=== PATIENT | male | born 1995 | race Caucasian/White ===

== ENCOUNTER 2022-06-07 19:06 | Emergency (ER) | payer BC, SELFPAY ==
--- NOTE | ~2022-06-07 | XR_ITS ---
EXAMINATION: XR ankle LT min 3V DATE: 06/07/2022 19:18 INDICATION: Left ankle pain. TECHNIQUE: 4 views of left ankle were obtained. COMPARISON: None. FINDINGS: Bone alignment is normal. No fracture. Joint spaces are normal. There is an enthesophyte at plantar aspect of calcaneal tuberosity. There is ankle soft tissue swelling. IMPRESSION: 1. No fracture. Reviewed, dictated and finalized at location A. IMPRESSION: 1. No fracture.
--- NOTE | 2022-06-07 19:08 | ED.LOWEXIN ---
HPI - Extremity Injury (Lower) General Chief Complaint: Extremity Injury, Lower Stated Complaint: Lt Ankle Pain Time Seen by Provider: 06/07/22 19:23 Source: patient and RN notes reviewed Mode of arrival: ambulatory Limitations: no limitations History of Present Illness HPI Narrative: 26-year-old male presents to the [facility] with complaints of left ankle pain since 9 AM this morning. Patient states that he was at work and rolled his ankle he thinks. Patient states he worked all day, got home took his boots off and noticed the swelling and bruising to the lateral aspect. Tenderness to the ankle. Denies hitting head, no loss of consciousness. Sensation intact distal to injury along with capillary refill being under 2 seconds MD complaint: ankle injury (left) Related Data Home Medications Medication Instructions Recorded Confirmed No Home Medications 06/07/22 06/07/22 Allergies Allergy/AdvReac Type Severity Reaction Status Date / Time No Known Allergies Allergy Verified 06/07/22 19:24 Review of Systems Review of Systems: All systems reviewed & are unremarkable except as noted in HPI and below Constitutional: Constitutional: Reports no additional constitutional complaints, Denies chills and Denies fever(s) Eyes: Eyes: Reports no additional eye complaints ENT: Reports system reviewed and no additional complaints, except as documented Cardiovascular: Cardiovascular: Reports no additional cardiovascular complaints Respiratory: Respiratory: Reports no additional respiratory complaints Gastrointestinal: Gastrointestinal: Reports no additional gastrointestinal complaints Musculoskeletal: Musculoskeletal: Reports as per HPI, Reports arthralgias (Left ankle) and Reports joint swelling (Left ankle) Integumentary/Breasts: Skin/Breast: Reports system reviewed and no additional complaints, except as docu Neurologic: Reports system reviewed and no additional complaints, except as documented Psychiatric: Psychiatric: Reports no additional psychiatric complaints Allergic/Immunologic: Allergic/Immunologic: Reports no additional allergic/immunologic complaints [facility] Past Medical History Medical History (Updated 06/07/22 @ 19:59 by Ilene Beckman APRN) Patient denies medical problems Social History Social History (Updated 06/07/22 @ 19:32 by Ilene Becmkan APRN) Gender identity (if verbalized by the patient): Male Comments At the time of my signature, I reviewed and agree with the nursing past medical, surgical, social, and family history. There is no relevant family history pertinent to the patient complaint. Exam Const: General: healthy appearing, no acute distress and alert Nutritional Appearance: well nourished Orientation/consciousness: patient oriented x3 Limitations: no limitations HENMT: Head: normal to inspection Ears: external ears normal Eyes: General: appearance normal, both eyes and all related structures Pupils: Equal, round and reactive pupils present Neck: Neck: normal visual inspection, no lymphadenopathy and no meningeal signs Chest: Chest palpation & inspection: normal inspection of the chest Resp: Effort & Inspection: normal respiratory effort and no use of accessory muscles Auscultation: clear to auscultation bilaterally, no crackles, no rales, no rhonchi and no wheezes Cardio: Rate: regular rate Rhythm: regular rhythm Back/Spine/Pelvis: Cervical Spine: normal cervical lordosis Thoracic/Lumbar Spine: thoracic and lumbar spine normal to inspection Skin: General skin exam: normal color Rashes: no rashes Wounds: no wounds Neuro: General: patient oriented x3, moves all extremities, no meningeal signs and no focal motor deficits Cranial nerves: Yes Equal, round and reactive pupils present Speech: normal speech Gait exam (Neuro): Normal gait present Extrem: General: normal to inspection, full ROM and capillary refill normal Left lower extremity: full ROM, normal capillary
[2022-06-07 19:23] VITALS: BP 157/88; PULSE 90; RESP 18; TEMP 37.5; O2SAT 99
== END 2022-06-07 19:31 | disposition home or self-care (01) ==
PROVIDERS: Emergency Provider Nurse Practitioner; PCP Nurse Practitioner Family
DX: S93.402A Sprain of unspecified ligament of left ankle, initial encounter (principal); X58.XXXA Exposure to other specified factors, initial encounter; Z86.16 Personal history of COVID-19
CPT/HCPCS: 73610; 99213; G0463

== ENCOUNTER → 2022-09-08 10:47 | Outpatient (CLI) | payer BC, SELFPAY ==
--- NOTE | ~2022-09-08 | MR_ITS ---
EXAMINATION: MR ankle LT wo con DATE: 09/08/2022 12:00 INDICATION: Left ankle sprain with lateral sided ankle pain TECHNIQUE: Magnetic resonance imaging (MRI) of the left ankle was performed without intravenous contr ast. Sequences included sagittal, coronal, and axial proton-density weighted fast spin echo without a nd with fat saturation. COMPARISON: None. FINDINGS: Medial ankle ligaments: There is thickening and loss of the normally more sharply defined striated structure of the anterior and posterior deep deltoid ligaments respectively consistent without significant surrounding edema co nsistent with a likely subacute or chronic moderate grade sprain/partial tear. The superficial deltoi d ligaments as well as the spring ligament are normal. Lateral ankle ligaments: The anterior and posterior inferior tibiofibular ligaments are normal. There is thickening and mild i ncreased signal of the anterior talofibular and posterior talofibular ligaments with mild associated soft tissue edema consistent with subacute moderate grade sprain/partial tears. The posterior talofib ular ligament is normal. Tendons: Achilles tendon is normal. The peroneus longus and brevis tendons are normal. The tibialis anterior a nd extensor hallucis longus and extensor digitorum longus tendons are normal. The tibialis posterior, flexor digitorum longus and flexor hallucis longus tendons are normal. Plantar fascia: Plantar aponeurosis is normal. Bones/other: Bone alignment is normal. No fracture. There is marrow edema at the talus primarily along the lateral aspect the head and neck which could be reactive related to the sprain/partial tear of the deep delt oid ligament versus bone contusion. Bone marrow signal is otherwise normal with no pathologic marrow replacing process. Joint spaces are normal. Fluid: Is a large amount fluid in the joint spaces. No tenosynovitis, bursitis or other abnormal fluid colle ctions. IMPRESSION: 1. Subacute moderate grade sprain/partial tears of the anterior talofibular and calcaneofibular ligam ents. 2. Subacute or potentially chronic moderate grade sprain/partial tear of the anterior and posterior d eltoid ligament at the medial ankle. 3. Marrow edema at the medial aspect of the head and neck of the talus without evident fracture line which could represent bone contusion or reactive edema related to deltoid ligament injury. Reviewed, dictated and finalized at location A. UCT MGR IMPRESSION: 1. Subacute moderate grade sprain/partial tears of the anterior talofibular and calcaneofibular ligaments. 2. Subacute or potentially chronic moderate grade sprain/partial tear of the an terior and posterior deltoid ligament at the medial ankle. 3. Marrow edema at the medial aspect of the head and neck of the talus without evident fracture line which could represent bone contusion or reactive edema re lated to deltoid ligament injury.
== END ==
PROVIDERS: PCP Nurse Practitioner Family; Visit Provider Nurse Practitioner
DX: S93.402A Sprain of unspecified ligament of left ankle, initial encounter (principal); X58.XXXA Exposure to other specified factors, initial encounter
CPT/HCPCS: 73721